=== PATIENT | female | born 1960 | race Caucasian/White ===

== ENCOUNTER 2017-06-02 13:51 | Emergency (ER) | payer MEDICAID, SELFPAY ==
[2017-06-02 13:52] VITALS: BP 160/92; PULSE 91; RESP 15; TEMP 36.4; O2SAT 99; BMI 27.8
--- NOTE | 2017-06-02 14:12 | RAD_ITS ---
STUDY: X-RAY CHEST REASON FOR EXAM: Female, 57 years old. Congestion times 3 weeks. History of pneumonia and double bypass surgery. TECHNIQUE: Frontal and lateral views of the chest. COMPARISON: 1 view of the chest dated July 03, 2016. FINDINGS: The patient is status post CABG. All sternal wires appear intact. The lungs are clear and expanded. There is no pleural effusion. There is no pneumothorax. Normal size heart. Normal mediastinum and cassius. There is no central vascular congestion. Normal visualized aortic arch and descending thoracic aorta. Normal visualized thoracic spine. Normal visualized ribs, clavicles, and shoulders. There is no demonstrated abnormality of the visualized soft tissue structures of the upper abdomen. RAD/Chest PA and Lateral IMPRESSION: There is no evident acute cardiopulmonary disease. Electronically Signed: Jose Graves MD at 15:17 EDT , Service support ,
--- NOTE | 2017-06-02 15:31 | ED.DCSUM_ITS ---
- ER Visit Summary Date of Service: 06/02/17 Chief Complaint: Hoarse voice History of Present Illness: The patient is a 57 F who has been ill for about 2- 3 weeks. She initially had nausea and vomiting although this resolved about 2 weeks ago. She did have significant harsh cough but states this is improving. She does complain of some mild shortness of breath. She began to have a sore throat since yesterday. She has also noted a hoarse voice over the past 2 weeks. She has had diarrhea for 2 days. Physical Examination: Afebrile vitals are stable Moist mucous membranes Heart regular rate and rhythm She has scattered expiratory wheezes but is in no respiratory distress able to speak in full sentences Abdomen soft Alert Oropharynx clear Test Results: Chest x-ray shows no acute process. Emergency Department Course and Treatment: She did not appears to have a bronchitis as well as laryngitis. She has no focal infiltrate on chest x-ray. She was given a prescription for a course of prednisone and advised to follow- up with her primary care physician. She was discharged. Treatment Plan: [] Disposition: Discharge Impression: Bronchitis Laryngitis This note was generated with [employer] dictation software. It may contain incorrect words, spelling, and punctuation that were not noted in review of the chart prior to signing ED Disposition - Plan for ED Patient: Chief Complaint: Other, Pain/Inj Referrals: Jose Montelongo MD [Primary Care Provider] -
--- NOTE | 2017-06-02 15:31 | ED.DEP ---
ED Disposition - Plan for ED Patient: Chief Complaint: Other, Pain/Inj Instructions: ED Laryngitis, Acute Bronchitis Prescriptions: Prednisone [Deltasone] 60 mg PO DAILY #15 tab Referrals: Jose Montelongo MD [Primary Care Provider] -
[2017-06-02 15:36] VITALS: PULSE 82; RESP 15; O2SAT 95
== END 2017-06-02 15:45 | disposition home or self-care (01) ==
LOC: ED 14:44
PROVIDERS: Emergency Provider Emergency Medicine; Family Provider Family Medicine; PCP Family Medicine
DX: J04.0 Acute laryngitis (principal); J40 Bronchitis, not specified as acute or chronic; I25.10 Atherosclerotic heart disease of native coronary artery without angina pectoris; I25.2 Old myocardial infarction; I10 Essential (primary) hypertension; K21.9 Gastro-esophageal reflux disease without esophagitis; Z72.0 Tobacco use; Z79.51 Long term (current) use of inhaled steroids; Z79.82 Long term (current) use of aspirin; Z79.899 Other long term (current) drug therapy
CPT/HCPCS: 71046; 99282

== ENCOUNTER 2017-10-17 17:35 | Emergency (ER) | payer MEDICAID, SELFPAY ==
[2017-10-17 17:39] VITALS: BP 157/67; PULSE 57; RESP 16; TEMP 36.7; O2SAT 96; BMI 29.1
[2017-10-17] MEDS: 0.9% Normal Saline 1,000 ML 1000 ML IV (18:09)
[2017-10-17] MEDS: Ondansetron 4 MG/2 ML Vial IV (18:11)
[2017-10-17 18:29] LABS: Absolute Lymphocyte Count 2.34 X10^3/ul (0.83-4.51); Absolute Neutrophil Count 7.2 X10^3/uL (2.0-7.7); Basophil# 0.02 X10^3/uL; Basophil% 0.2 % (0-1); Eosinophil# 0.18 X10^3/uL; Eosinophils% 1.6 % (0-5); Hematocrit 43.5 % (37-47); Hemoglobin 15.1 g/dl (12.0-15.0); Lymphocyte # 2.34 X10^3/ul (4.0); Lymphocyte % 21.2 % (19-41); Mean Corp Hgb Conc 34.7 g/gl (32-36); Mean Corpuscular Hgb 30.1 pg (27.0-32.0); Mean Corpuscular Volume 86.8 fL (81-99); Mean Platelet Vol. 9.9 fl (6.2-12.0); Monocyte# 1.26 X10^3/uL; Monocyte% 11.4 % (0-10); Neutrophil # 7.22 X10^3/uL (2.7-7.7); Neutrophil % 65.5 % (47-70); POSITIVE COUNT NO; POSITIVE DIFFERENTIAL NO; POSITIVE MORPHOLOGY NO; Platelet Count 284 K/mm3 (150-450); RBC Distribution Width CV 12.2 % (11.6-14.6); RBC Distribution Width SD 38.7 fl (35.1-43.9); Red Blood Count 5.01 M/mm3 (4.2-5.4)
[2017-10-17 18:39] LABS: AST(SGOT) 13 U/L (15-37); Alanine Aminotransfer ALT/SGPT 21 U/L (13-56); Albumin, Serum 3.7 g/dL (3.2-5.0); Alkaline Phosphatase 165 U/L (45-117); Anion Gap 9 (5-15); BUN 12 mg/dL (7-18); BUN/Creat Ratio 12.8 RATIO (10-20); Calcium,Total 9.4 mg/dL (8.5-10.1); Chloride 107 mmol/L (98-107); Creatinine, Serum 0.94 mg/dL (0.55-1.02); EST Glomerular Filtration Rate 65 mL/min (>60); Est Glom Filt Rate - Afr Amer 79 mL/min (>60); Globulin 3.8 g/dL (2.2-4.2); Glucose 92 mg/dL (74-106); Lipase 95 U/L (73-393); Potassium 3.7 mmol/L (3.5-5.1); Protein, Total 7.5 g/dL (6.4-8.2); Sodium Level 141 mmol/L (136-145)
--- NOTE | 2017-10-17 18:55 | ED.DCSUM_ITS ---
- ER Visit Summary Date of Service: 10/17/17 Chief Complaint: Nausea and diarrhea History of Present Illness: The patient is a 57 F who presents with 4 days of nausea and diarrhea. Patient states that she is felt very nauseous but has not vomited. She has had multiple episodes of diarrhea per day. She denies any fevers. She has some mild abdominal cramping with this. She has taken nothing for it. She denies any recent antibiotic usage. No history of C. difficile. She was admitted 4 months ago for dehydration but nothing recently. Physical Examination: Vital signs reviewed. HEENT exam unremarkable. Heart is regular rate and rhythm without murmurs. Lungs are clear to auscultation. Abdomen is soft and nontender. Extremities reveal no edema. Skin exam normal. Neurologic exam normal. Test Results: Laboratory studies unremarkable except for an alkaline phosphatase of 165 and AST of 13 Emergency Department Course and Treatment: Patient was given saline and Zofran. She feels much better after the fluids. I did give her a total of 2 L. This is likely a viral etiology. Patient will be discharged with Imodium as well as anti-emetics. She has no risk factors for C. difficile. She will follow-up with her PCP. Treatment Plan: [] Disposition: Discharge Impression: Diarrhea This note was generated with [employer] dictation software. It may contain incorrect words, spelling, and punctuation that were not noted in review of the chart prior to signing ED Disposition - Plan for ED Patient: Disposition: Home or Assisted Living Chief Complaint: Nausea/Vomiting/Diarrhea Instructions: ED Diet Vomiting Diarrhea Prescriptions: Loperamide [Imodium] 2 mg PO Q6H PRN PRN #14 cap PRN Reason: Diarrhea Ondansetron [Zofran Odt] 4 mg PO Q8H PRN PRN #10 tab PRN Reason: Nausea Referrals: Jose Montelongo MD [Primary Care Provider] -
[2017-10-17 19:25] LABS: Bacteria 0 SEEN /hpf (None Seen); Mucous, Urine 0 SEEN /hpf (<or=2+)
[2017-10-17 19:29] LABS: Color, Urine Straw (Yellow); Glucose, Dipstick Normal (Normal); Ketone-Dipstick Negative (Negative); Leukocyte Esterase-Dipstick 25 /ul (Negative); Nitrite-Dipstick Negative (Negative); Occult Blood-Urine 10 /ul (Negative); Protein-Dipstick Negative (Negative); Urine Bilirubin Dipstick Negative (Negative); Urine Clarity Clear (Clear); Urine Urobilinogen Normal (Normal); Urine pH 6.5 (5.0 - 8.0)
[2017-10-17 19:36] LABS: Red Blood Cells-Urine 0-5 SEEN /hpf (0-5); Squamous Epithelial Cells - UA 0-5 SEEN /hpf (5-10); White Blood Cells 0-5 SEEN /hpf (0-5)
--- NOTE | 2017-10-17 20:34 | ED.DEP ---
ED Disposition - Plan for ED Patient: Disposition: Home or Assisted Living Chief Complaint: Nausea/Vomiting/Diarrhea Instructions: ED Diet Vomiting Diarrhea Prescriptions: Loperamide [Imodium] 2 mg PO Q6H PRN PRN #14 cap PRN Reason: Diarrhea Ondansetron [Zofran Odt] 4 mg PO Q8H PRN PRN #10 tab PRN Reason: Nausea Referrals: Jose Montelongo MD [Primary Care Provider] -
[2017-10-17 20:44] VITALS: BP 120/61; PULSE 64; RESP 18; O2SAT 94
[2017-10-17] MEDS: 0.9% Normal Saline 1,000 ML 999 ML IV (20:44)
[2017-10-17 22:00] VITALS: BP 122/68; PULSE 67; PULSE 68; RESP 18; O2SAT 97
== END 2017-10-17 22:01 | disposition home or self-care (01) ==
PROVIDERS: Emergency Provider Emergency Medicine; Family Provider Family Medicine; PCP Family Medicine
DX: R19.7 Diarrhea, unspecified (principal); I25.2 Old myocardial infarction; Z86.711 Personal history of pulmonary embolism; Z95.1 Presence of aortocoronary bypass graft; Z79.82 Long term (current) use of aspirin; Z79.899 Other long term (current) drug therapy
CPT/HCPCS: 80053; 81001; 83690; 85025; 96361; 96374; 99285; J7030; J2405

== ENCOUNTER → 2018-03-19 16:19 | Outpatient (CLI) | payer MEDICAID, SELFPAY ==
[2018-03-19 16:47] LABS: CPK Total, Creatine Kinase 82 U/L (26-192)
== END ==
PROVIDERS: Family Provider Family Medicine; PCP Family Medicine; Visit Provider Family Medicine
DX: R07.9 Chest pain, unspecified (principal)
CPT/HCPCS: 82550; 84484